=== PATIENT | male | born 1940 | race African-American/Black ===

== ENCOUNTER 2020-08-04 07:53 | Inpatient (IN) | payer MEDICARE, MEDICAID ==
[~2020-08-04] VITALS: Ht 170.2 cm; Wt 48.3 kg
[2020-08-04 08:27] LABS: BG DEOXYHEMOGLOBIN 0.7 % (0.0-5.0); BG FRACTION INSPIRED OXYGEN 36; BG HCO3 ACT 24.8 mmol/L (22.0-26.0); BG METHEMOGLOBIN 0.4 % (0.0-1.5); BG OXYGEN SATURATION 99.3 % (92.0-98.5); BG OXYHEMOGLOBIN 98.9 % (94.0-97.0); BG PCO2 32.2 mmHg (35.0-45.0); BG PH 7.504 (7.350-7.450); BG PO2 305.6 mmHg (75.0-100.0); BG SAMPLE SITE RIGHT RADIAL; BG TOTAL HEMOGLOBIN 10.5 g/dL (12.0-18.0); BG VENT MODE NASAL CANNULA
[2020-08-04 09:20] LABS: MEAN CORPUSCULAR HEMOGLOBIN 29.8 pg (28.0-32.0); MEAN CORPUSCULAR VOLUME 87.3 fL (80.0-94.0); MEAN PLATELET VOLUME 7.6 fl (7.4-10.4); PLATELET 477 x1000/uL (130-400); RED BLOOD CELL COUNT 4.01 mill/uL (4.7-6.1)
[2020-08-04 09:30] LABS: CHLORIDE 100 mEq/L (98-107)
[2020-08-04 09:38] LABS: CREATINE KINASE 84 IU/L (39-308)
[2020-08-04] MEDS ORDERED: PIPERACILLIN/TAZOBACTAM 3.375GM/50ML PREMIX IV ONE (10:15)
[2020-08-04] MEDS ORDERED: SODIUM CHLORIDE 0.9% 1,000 ML IV NR (10:15)
[2020-08-04] MEDS ORDERED: VANCOMYCIN 1 G PREMIX 200 ML IV NR (10:15)
[2020-08-04] MEDS ORDERED: PIPERACILLIN/TAZ 3.375G PREMIX 50 ML IV NR (10:30)
[2020-08-04 10:37] LABS: CLARITY URINE CLOUDY (CLEAR); COLOR URINE DARK YELLOW (YELLOW); KETONES URINE TRACE (NEGATIVE); LEUKOCYTE ESTERASE URINE 2+ (NEGATIVE); NITRITE URINE POSITIVE (NEGATIVE); OCCULT BLOOD URINE TRACE (NEGATIVE); PH URINE 5.5 (4.5-8.0); PROTEIN URINE TRACE (NEGATIVE); SPECIFIC GRAVITY URINE 1.017 (1.005-1.030)
[2020-08-04 10:46] LABS: PLATELET ESTIMATE INCREASED
[2020-08-04 10:47] LABS: *AMPHETAMINES SCREEN URINE NEGATIVE (NEGATIVE); *BARBITURATES SCREEN URINE NEGATIVE (NEGATIVE); *BENZODIAZEPINES SCREEN URINE NEGATIVE (NEGATIVE); *COCAINE SCREEN URINE NEGATIVE (NEGATIVE)
[2020-08-04 10:48] LABS: CANNABINOID URINE SCREEN NEGATIVE (NEGATIVE); METHADONE URINE SCREEN NEGATIVE (NEGATIVE); OPIATES URINE SCREEN NEGATIVE (NEGATIVE); PHENCYCLIDINE URINE SCREEN NEGATIVE (NEGATIVE)
[2020-08-04 11:14] LABS: INR 1.2; PROTHROMBIN TIME 12.7 sec (9.6-11.0)
[2020-08-04] MEDS ORDERED: ONDANSETRON HCL 4MG/2ML INJ IV PRN (13:00)
[2020-08-04] MEDS ORDERED: ACETAMINOPHEN 325MG TABLET PO PRN (13:00)
[2020-08-04] MEDS: SODIUM CHLORIDE 0.9% 1,000 ML IV SCH (13:41)
[2020-08-04] MEDS ORDERED: ENOXAPARIN 30MG/0.3ML SYR SUBCUT SCH (14:00)
[2020-08-04] MEDS ORDERED: PIPERACILLIN/TAZOBACTAM 3.375 G in DEXTROSE 5% WATER 50 ML IV SCH (18:00)
[2020-08-04 20:00] VITALS: BP_SYST 106; BP_SYST 122; BP_DIAS 31; BP_DIAS 37
[2020-08-04] MEDS ORDERED: DEXTROSE 50% WATER 50ML SYRINGE IV PRN (21:00)
[2020-08-04] MEDS: INSULIN LISPRO 100 UNITS/ML SUBCUT SCH (21:00)
[2020-08-04] MEDS: BLOOD SUGAR DIAGNOSTIC STRIP TEST SCH (21:45)
[2020-08-04] MEDS: PIPERACILLIN/TAZOBACTAM 3.375 G in DEXTROSE 5% WATER 50 ML IV SCH (23:59)
[2020-08-05] VITALS: BP 141/80
[2020-08-05] MEDS: SODIUM CHLORIDE 0.9% 1,000 ML IV SCH (01:22)
[2020-08-05] MEDS ORDERED: ASPI-1497 PO (03:31)
[2020-08-05] MEDS ORDERED: LISI2.5T47 PO (03:31)
[2020-08-05] MEDS ORDERED: ATOR-2 PO (03:31)
[2020-08-05] MEDS ORDERED: METO25TA6 PO (03:31)
[2020-08-05] MEDS ORDERED: AMLO5TAB88 PO (03:31)
[2020-08-05 04:00] VITALS: BP 139/62
[2020-08-05] MEDS: PIPERACILLIN/TAZOBACTAM 3.375 G in DEXTROSE 5% WATER 50 ML IV SCH ×2 (05:07→11:58)
[2020-08-05] MEDS: INSULIN LISPRO 100 UNITS/ML SUBCUT SCH ×4 (06:26→20:53)
[2020-08-05] MEDS: BLOOD SUGAR DIAGNOSTIC STRIP TEST SCH ×4 (06:26→20:53)
[2020-08-05 06:59] LABS: HEMATOCRIT. 24.8 % (42.0-52.0); HEMOGLOBIN. 8.5 g/dL (14.0-18.0); MEAN CORPUSCULAR HEMOGLOBIN 29.6 pg (28.0-32.0); MEAN CORPUSCULAR VOLUME 86.3 fL (80.0-94.0); MEAN PLATELET VOLUME 7.8 fl (7.4-10.4); PLATELET 362 x1000/uL (130-400); RED BLOOD CELL COUNT 2.87 mill/uL (4.7-6.1); RED CELL DISTRIBUTION WIDTH 15.4 % (11.6-14.6)
[2020-08-05 07:06] LABS: CHLORIDE 108 mEq/L (98-107)
[2020-08-05] MEDS ORDERED: POTASSIUM CHLORIDE 20MEQ TABLET SR PO SCH (08:45)
[2020-08-05] MEDS ORDERED: TAMSULOSIN HCL 0.4MG SR CAPSULE PO SCH (09:00)
[2020-08-05] MEDS: ASPIRIN 81MG TABLET PO SCH (09:57)
[2020-08-05] MEDS: FINASTERIDE 5MG TABLET PO SCH (10:09)
[2020-08-05] MEDS: DEXT 5%/0.45% NACL 1000ML 1,000 ML IV SCH (11:50)
[2020-08-05] MEDS: ENOXAPARIN 30MG/0.3ML SYR SUBCUT SCH (14:55)
[2020-08-05 15:15] VITALS: BP 117/59
[2020-08-05] MEDS: PIPERACILLIN/TAZOBACTAM 2.25G in DEXTROSE 5% WATER 50ML IV SCH ×2 (18:33→23:28)
[2020-08-05 19:17] LABS: PLATELET ESTIMATE NORMAL
[2020-08-05 20:00] VITALS: BP 136/52
[2020-08-05 21:42] LABS: T4 FREE 1.36 ng/dL (0.76-1.46)
[2020-08-06] VITALS: BP 151/41
[2020-08-06] MEDS: DEXT 5%/0.45% NACL 1000ML 1,000 ML IV SCH ×2 (01:26→12:02)
[2020-08-06 01:32] LABS: FOLIC ACID (FOLATE) SERUM 10.9 ng/mL (>5.38)
[2020-08-06 04:00] VITALS: BP 141/65
[2020-08-06] MEDS: PIPERACILLIN/TAZOBACTAM 2.25G in DEXTROSE 5% WATER 50ML IV SCH (05:09)
[2020-08-06] MEDS: INSULIN LISPRO 100 UNITS/ML SUBCUT SCH ×4 (06:22→21:00)
[2020-08-06] MEDS: BLOOD SUGAR DIAGNOSTIC STRIP TEST SCH ×4 (06:22→21:00)
[2020-08-06 07:47] LABS: BASOPHILS % 0.3 % (0.0-2.0); EOSINOPHILS % 1.6 % (0.0-5.0); HEMATOCRIT. 25.7 % (42.0-52.0); HEMOGLOBIN. 8.8 g/dL (14.0-18.0); LYMPHOCYTES % 7.1 % (20.0-50.0); MEAN CORPUSCULAR HEMOGLOBIN 28.9 pg (28.0-32.0); MEAN CORPUSCULAR VOLUME 84.7 fL (80.0-94.0); MONOCYTES % 7.7 % (2.0-8.0); NEUTROPHILS % 83.3 % (40.0-76.0); PLATELET 393 x1000/uL (130-400); RED BLOOD CELL COUNT 3.04 mill/uL (4.7-6.1)
[2020-08-06 07:58] LABS: CHLORIDE 107 mEq/L (98-107)
[2020-08-06 08:00] VITALS: BP 160/70
[2020-08-06] MEDS: ZINC SULFATE 220 MG ( 50 ) CAPSULE PO SCH (08:59)
[2020-08-06] MEDS: FINASTERIDE 5MG TABLET PO SCH (08:59)
[2020-08-06] MEDS: ASCORBIC ACID 500 MG TABLET PO SCH (08:59)
[2020-08-06] MEDS: ASPIRIN 81MG TABLET PO SCH (08:59)
[2020-08-06] MEDS: ENOXAPARIN 30MG/0.3ML SYR SUBCUT SCH (08:59)
[2020-08-06 12:00] VITALS: BP 155/56
[2020-08-06] MEDS: MEROPENEM 1,000 MG in SODIUM CHLORIDE 0.9% 100 ML IV SCH (12:02)
[2020-08-06 16:00] VITALS: BP 146/76
[2020-08-06 21:29] VITALS: BP 171/62
[2020-08-07] VITALS (7 sets, daily range): BP systolic 129–177; BP diastolic 57–80
[2020-08-07] MEDS ORDERED: IOHEXOL-350 100 ML BOTTLE ONE (00:13)
[2020-08-07] MEDS: MEROPENEM 1,000 MG in SODIUM CHLORIDE 0.9% 100 ML IV SCH ×2 (01:01→11:41)
[2020-08-07] MEDS: DEXT 5%/0.45% NACL 1000ML 1,000 ML IV SCH ×2 (01:04→15:06)
[2020-08-07] MEDS: BLOOD SUGAR DIAGNOSTIC STRIP TEST SCH ×4 (06:45→21:00)
[2020-08-07] MEDS: INSULIN LISPRO 100 UNITS/ML SUBCUT SCH ×4 (07:15→21:00)
[2020-08-07 07:46] LABS: BASOPHILS % 1.1 % (0.0-2.0); EOSINOPHILS % 0.8 % (0.0-5.0); HEMATOCRIT. 25.8 % (42.0-52.0); HEMOGLOBIN. 8.9 g/dL (14.0-18.0); LYMPHOCYTES % 10.7 % (20.0-50.0); MEAN CORPUSCULAR HEMOGLOBIN 29.6 pg (28.0-32.0); MEAN CORPUSCULAR VOLUME 85.5 fL (80.0-94.0); MEAN PLATELET VOLUME 8.1 fl (7.4-10.4); MONOCYTES % 5.8 % (2.0-8.0); NEUTROPHILS % 81.6 % (40.0-76.0); PLATELET 396 x1000/uL (130-400); RED BLOOD CELL COUNT 3.02 mill/uL (4.7-6.1); RED CELL DISTRIBUTION WIDTH 14.8 % (11.6-14.6)
[2020-08-07 08:03] LABS: CHLORIDE 106 mEq/L (98-107)
[2020-08-07] MEDS: ENOXAPARIN 30MG/0.3ML SYR SUBCUT SCH (08:45)
[2020-08-07] MEDS: ZINC SULFATE 220 MG ( 50 ) CAPSULE PO SCH (08:45)
[2020-08-07] MEDS: ASCORBIC ACID 500 MG TABLET PO SCH (08:45)
[2020-08-07] MEDS: ASPIRIN 81MG TABLET PO SCH (08:46)
[2020-08-07] MEDS: FINASTERIDE 5MG TABLET PO SCH (08:46)
[2020-08-08] VITALS: BP 195/72
[2020-08-08] MEDS: MEROPENEM 1,000 MG in SODIUM CHLORIDE 0.9% 100 ML IV SCH ×2 (01:02→12:33)
[2020-08-08 04:00] VITALS: BP 174/57
[2020-08-08] MEDS: DEXT 5%/0.45% NACL 1000ML 1,000 ML IV SCH ×2 (05:25→18:43)
[2020-08-08] MEDS: BLOOD SUGAR DIAGNOSTIC STRIP TEST SCH ×4 (06:45→21:12)
[2020-08-08] MEDS: INSULIN LISPRO 100 UNITS/ML SUBCUT SCH ×4 (07:15→21:00)
[2020-08-08 08:00] VITALS: BP 125/68
[2020-08-08] MEDS: ASPIRIN 81MG TABLET PO SCH (09:45)
[2020-08-08] MEDS: FINASTERIDE 5MG TABLET PO SCH (09:45)
[2020-08-08] MEDS: ZINC SULFATE 220 MG ( 50 ) CAPSULE PO SCH (09:45)
[2020-08-08] MEDS: ENOXAPARIN 30MG/0.3ML SYR SUBCUT SCH (09:46)
[2020-08-08] MEDS: ASCORBIC ACID 500 MG TABLET PO SCH (09:49)
[2020-08-08 12:00] VITALS: BP 161/73
[2020-08-08 16:00] VITALS: BP 171/64
[2020-08-08 20:00] VITALS: BP 182/72
[2020-08-08] MEDS: CLONIDINE 0.1MG TABLET PO PRN (21:11)
[2020-08-09] VITALS: BP 171/64
[2020-08-09] MEDS: CLONIDINE 0.1MG TABLET PO PRN (01:21)
[2020-08-09] MEDS: MEROPENEM 1,000 MG in SODIUM CHLORIDE 0.9% 100 ML IV SCH ×2 (01:44→12:11)
[2020-08-09 04:00] VITALS: BP 181/71
[2020-08-09] MEDS: BLOOD SUGAR DIAGNOSTIC STRIP TEST SCH ×2 (05:46→12:05)
[2020-08-09] MEDS: INSULIN LISPRO 100 UNITS/ML SUBCUT SCH ×2 (05:46→12:06)
[2020-08-09 07:05] LABS: HEMATOCRIT. 25.5 % (42.0-52.0); HEMOGLOBIN. 8.9 g/dL (14.0-18.0); MEAN CORPUSCULAR HEMOGLOBIN 29.7 pg (28.0-32.0); MEAN CORPUSCULAR VOLUME 85.4 fL (80.0-94.0); MEAN PLATELET VOLUME 8.4 fl (7.4-10.4); PLATELET 330 x1000/uL (130-400); RED BLOOD CELL COUNT 2.99 mill/uL (4.7-6.1); RED CELL DISTRIBUTION WIDTH 15.4 % (11.6-14.6)
[2020-08-09 07:10] LABS: CHLORIDE 108 mEq/L (98-107)
[2020-08-09 08:00] VITALS: BP 137/75
[2020-08-09] MEDS: ASPIRIN 81MG TABLET PO SCH (09:00)
[2020-08-09] MEDS: DEXT 5%/0.45% NACL 1000ML 1,000 ML IV SCH (10:01)
[2020-08-09] MEDS: FINASTERIDE 5MG TABLET PO SCH (10:01)
[2020-08-09] MEDS: ASCORBIC ACID 500 MG TABLET PO SCH (10:02)
[2020-08-09] MEDS: ENOXAPARIN 30MG/0.3ML SYR SUBCUT SCH (10:02)
[2020-08-09] MEDS: ZINC SULFATE 220 MG ( 50 ) CAPSULE PO SCH (10:06)
[2020-08-09 12:00] VITALS: BP 117/76
[2020-08-09 15:22] LABS: PLATELET ESTIMATE NORMAL
[2020-08-09 16:00] VITALS: BP 178/65
[2020-08-09 17:18] VITALS: BP 118/65
== END 2020-08-09 17:30 | disposition hospice, home (50) | DRG 871 ==
LOC: ER 07:53 → 5WST 11:07 → EDBEDREQ 11:14 → ENRESERV 14:27 → CANRESERV 14:27 → EDBEDREQSVC 15:14 → ENRESERV 17:40
PROVIDERS: ADMIT Internal Medicine; ATTEND Internal Medicine
PROC: 02HV33Z Insertion of Infusion Device into Superior Vena Cava, Percutaneous Approach (ICD-10-PCS; principal; 2020-08-08)
PROC: B548ZZA Ultrasonography of Superior Vena Cava, Guidance (ICD-10-PCS; 2020-08-08)
DX: A41.51 Sepsis due to Escherichia coli [E. coli] (principal); G92 Toxic encephalopathy; I63.9 Cerebral infarction, unspecified; E44.0 Moderate protein-calorie malnutrition; N39.0 Urinary tract infection, site not specified; E87.1 Hypo-osmolality and hyponatremia; E87.2 Acidosis; R47.01 Aphasia; Z68.1 Body mass index [BMI] 19.9 or less, adult; I25.10 Atherosclerotic heart disease of native coronary artery without angina pectoris; D64.9 Anemia, unspecified; E11.649 Type 2 diabetes mellitus with hypoglycemia without coma; R74.01 Elevation of levels of liver transaminase levels; R65.20 Severe sepsis without septic shock; L89.156 Pressure-induced deep tissue damage of sacral region; J44.9 Chronic obstructive pulmonary disease, unspecified; Z20.822 Contact with and (suspected) exposure to COVID-19; R26.89 Other abnormalities of gait and mobility; I10 Essential (primary) hypertension; I65.22 Occlusion and stenosis of left carotid artery; R13.10 Dysphagia, unspecified; R47.1 Dysarthria and anarthria; Z86.73 Personal history of transient ischemic attack (TIA), and cerebral infarction without residual deficits; I25.2 Old myocardial infarction; Z89.611 Acquired absence of right leg above knee; Z89.612 Acquired absence of left leg above knee; Z93.1 Gastrostomy status
CPT/HCPCS: 36415; 36600; 70496; 70498; 70551; 71045; 71250; 76937; 80048; 80053; 80061; 80305; 81003; 82040; 82140; 82375; 82550; 82607; 82728; 82746; 82805; 82962; 83036; 83540; 83550; 83605; 84134; 84145; 84439; 84443; 84481; 84484; 85025; 86850; 86900; 87077; 87186; 87426; 93005; 93306; 97161; 97165; 99291; C1725; C1769; J1650; J1815; J2185; J2543; J3370; J7050; J7060; Q9967